=== PATIENT | male | born 1960 | race Caucasian/White ===

== ENCOUNTER 2018-09-02 05:33 | Day surgery (SDC) | payer OTHER ==
[~2018-09-02] VITALS: Ht 175.3 cm; Wt 79.4 kg
--- NOTE | ~2018-09-02 | O ---
[facility] [place] [address] OPERATIVE REPORT Name: MIKE SALGUERO Room #: DEP [facility].#: [id number] Admission: 09/02/18 Attend Phys: Kojo Allen MD Discharge: 09/02/18 Date of : 62 Report #: [id number] THIS REPORT FOR: //name// CC: Kojo Gentile DATE OF SERVICE: 09/02/2018 PREOPERATIVE DIAGNOSIS: Right knee medial meniscus tear. POSTOPERATIVE DIAGNOSIS: Right knee medial meniscus tear. PROCEDURE: Right knee arthroscopy with partial medial meniscectomy. SURGEON: Kojo Allen MD INDICATIONS: This active, fit 57-year-old gentleman complains of right knee pain with exercise, running and cycling. His clinical exam and MRI study confirmed moderate degenerative tearing in the mid and posterior aspect of the medial meniscus. We discussed treatment options and elected to go ahead with arthroscopic debridement. DESCRIPTION OF PROCEDURE: The patient was taken to the operating room where he was placed under general anesthesia. Prophylactic intravenous antibiotics were administered. The right knee and leg were meticulously prepped and draped and a thigh tourniquet was inflated to 300 mmHg. A lateral suprapatellar inflow cannula was placed. The arthroscope and probe were introduced. The various compartments were sequentially visualized and documented with arthroscopic photography. The medial compartment confirmed irregular tearing in the mid and posterior aspect of the medial meniscus including most of the meniscus extending out to the outer 20%. The inner portion which was diffusely torn, irregular, unstable was removed. There was an unstable parrot-beak shaped fragment in the mid medial aspect, which had flipped down along the meniscotibial recess, which was flipped back into the joint and resected. The more anterior portion of the medial meniscus was still intact and stable and no debridement there was necessary. The area of damage extended all the way back to the posterior horn where some remnant of meniscus was still intact and functional. Once a thorough debridement was completed, no further unstable meniscus was apparent. The cartilage surface on both the medial femoral condyle and the medial tibial plateau were still in good shape with only minor fissuring and minor grooving. No significant debridement here was necessary. The remainder of the knee was essentially normal. The intercondylar notch revealed normal cruciate ligaments and only minor synovial hypertrophy. [address] [address] OPERATIVE REPORT Name: MIKE SALGUERO Room #: DEP [facility].#: [id number] Admission: 09/02/18 Attend Phys: Kojo Allen MD Discharge: 09/02/18 Date of : 62 Report #: [id number] debridement here was necessary. The lateral compartment revealed good cartilage on both the lateral femoral condyle and the lateral tibial plateau. The lateral meniscus appeared to be intact and stable and no debridement was necessary. The patella tracked nicely and appeared to be stable. The cartilage surfaces on both the patella and the trochlear region were normal with only minor irregular fraying. The suprapatellar pouch was normal. The knee was further thoroughly copiously irrigated and then all excess fluid was evacuated. A 40 mg of Depo-Medrol and 20 mL of 0.5% Marcaine with epinephrine were injected into the joint. The puncture sites were closed with interrupted nylon suture. The tourniquet was deflated. A sterile dressing was applied. The patient was awakened and returned to recovery room in good condition. <ELECTRONICALLY SIGNED> By: Kojo Allen MD 09/04/18 [id number] Kojo Allen MD /nt
[~2018-09-02 05:33] MED LIST: SYMBICORT160 MCG/4. INH; VENTOLIN HFA 1818 GM INH
[2018-09-02 12:22] VITALS: BP 108/68
[2018-09-02 14:30] VITALS: BP 108/68
== END 2018-09-02 15:20 | disposition home or self-care (01) ==
LOC: TBA 05:33 → OR 05:33 → TBA 05:34 → OR 13:07
DX: S83.241A Other tear of medial meniscus, current injury, right knee, initial encounter (principal); J45.909 Unspecified asthma, uncomplicated; Z98.890 Other specified postprocedural states; Z79.899 Other long term (current) drug therapy; X58.XXXA Exposure to other specified factors, initial encounter; Y93.89 Activity, other specified; Y92.89 Other specified places as the place of occurrence of the external cause; Y99.8 Other external cause status
CPT/HCPCS: 50010; 50101; 50405; 51038; 54170; 56526; 57103; 62110; 62900; 70005